=== PATIENT | male | born 1980 | race Hispanic/Latino ===

== ENCOUNTER 2022-01-23 01:41 | Emergency (ER) | payer OTHER ==
[~2022-01-23] VITALS: Ht 167.6 cm; Wt 73.9 kg
[2022-01-23 01:44] VITALS: BP 134/86
[2022-01-23] MEDS ORDERED: METH4TAB3 PO (02:50)
== END 2022-01-23 02:57 | disposition home or self-care (01) ==
LOC: EDBD 01:41 → EDH 01:41
DX: S93.401A Sprain of unspecified ligament of right ankle, initial encounter (principal); W18.39XA Other fall on same level, initial encounter; Y93.89 Activity, other specified; Y92.89 Other specified places as the place of occurrence of the external cause; Y99.0 Civilian activity done for income or pay
CPT/HCPCS: 73610